=== PATIENT | female | born 1980 | race Caucasian/White ===

== ENCOUNTER 2020-10-20 21:02 | Emergency (ER) | payer MEDICAID ==
[2020-10-20] MEDS ORDERED: KEPPRA1000 MG PO (21:26)
[2020-10-20] MEDS ORDERED: NEURONTIN300 MG/CAP PO (21:27)
[2020-10-20] MEDS ORDERED: KAPSPARGO SPRIN25 MG PO (21:27)
[2020-10-20] MEDS ORDERED: METOPROLOL SUCC25 M1 PO (21:28)
[2020-10-20 22:04] LABS: HEMATOCRIT 40.6 % (37.0-47.0); HEMOGLOBIN 14.3 g/dL (12.5-16.0); MEAN CELL VOLUME 93 fl (78-100); MEAN CORPUSCULAR HEMOGLOBIN 33 pg (27-31); MEAN CORPUSCULAR HGB CONC 35 g/dL (33-37); MEAN PLATELET VOLUME 9.6 fl (7.4-10.4); PLATELET COUNT 69 K/mm3 (130-400); RED BLOOD COUNT 4.39 M/mm3 (4.10-5.30); RED CELL DISTRIBUTION WIDTH 15.1 % (11.5-14.5)
[2020-10-20 22:12] LABS: ALBUMIN 4.6 g/dL (3.5-5.0)
[2020-10-20 22:15] LABS: GLUCOSE 104 mg/dL (65-105); POTASSIUM 3.2 mmol/L (3.5-5.1); TOTAL PROTEIN 7.6 g/dL (6.4-8.3)
[2020-10-20 22:16] LABS: SODIUM 138 mmol/L (136-145)
[2020-10-20 22:17] LABS: CALCIUM 8.5 mg/dL (8.3-10.5); TOTAL BILIRUBIN 0.9 mg/dL (0.2-1.2)
[2020-10-20 22:21] LABS: ALCOHOL IN-HOUSE 123 mg/dL (<10); PARTIAL THROMBOPLASTIN TIME 20.6 SECONDS (21.0-32.0); PROTHROMBIN TIME 10.6 SECONDS (9.0-12.0)
[2020-10-20 22:23] LABS: AST-SGOT 419 U/L (5-34)
[2020-10-20 22:25] LABS: ALT/SGPT 108 U/L (0-55); MAGNESIUM 1.36 mg/dL (1.60-2.60)
[2020-10-20 22:28] LABS: ACETAMINOPHEN < 1 ug/mL; CARBON DIOXIDE 17 mmol/L (22-29)
[2020-10-20 23:02] LABS: PH-URINE 5.5 (5.0 - 8.0); URINE APPEARANCE CLOUDY; URINE BILIRUBIN NEGATIVE (NEGATIVE); URINE BLOOD 250 ery/uL (NEGATIVE); URINE COLOR YELLOW; URINE GLUCOSE NEGATIVE (NEGATIVE); URINE KETONE 2+ (NEGATIVE); URINE NITRATE NEGATIVE (NEGATIVE); URINE PROTEIN(semi-quant) 1+ mg/dL (NEGATIVE); URINE UROBILINOGEN NORMAL (NORMAL)
[2020-10-20 23:03] LABS: LYMPHOCYTE 16 % (20-51); MONOCYTE 5 % (3-10); NEUTROPHILS 79 % (42-75)
[2020-10-20 23:03] LABS: URINE LEUKOCYTE ESTERASE NEGATIVE (NEGATIVE); URINE MUCUS PRESENT (NOT PRESENT)
[2020-10-20 23:56] LABS: LIPASE 70 U/L (8-78)
[2020-10-21 01:10] VITALS: BP 138/84
== END 2020-10-21 01:10 | disposition home or self-care (01) ==
LOC: ED 21:02
PROVIDERS: Nurse Practitioner Family
DX: F10.239 Alcohol dependence with withdrawal, unspecified (principal); K70.10 Alcoholic hepatitis without ascites; E87.6 Hypokalemia; E83.42 Hypomagnesemia; E87.2 Acidosis; D69.6 Thrombocytopenia, unspecified; G89.29 Other chronic pain; M79.661 Pain in right lower leg; I10 Essential (primary) hypertension; G40.909 Epilepsy, unspecified, not intractable, without status epilepticus; Z79.899 Other long term (current) drug therapy; Z20.822 Contact with and (suspected) exposure to COVID-19
CPT/HCPCS: J2270; J2405; J3360; J3411; J3475; J3480; J3490; J7030

== ENCOUNTER 2021-01-11 15:04 | Emergency (ER) | payer MEDICAID ==
[~2021-01-11 15:04] MED LIST: KAPSPARGO SPRIN25 MG PO; KEPPRA1000 MG PO; METOPROLOL SUCC25 M1 PO; NEURONTIN300 MG/CAP PO
[2021-01-11] MEDS ORDERED: CIPROFLOX-DEXA7.5 ML OT (15:31)
[2021-01-11] MEDS ORDERED: AMOXICILLIN 50500 MG PO (15:31)
[2021-01-11] MEDS ORDERED: MUPIROCIN2% TP (16:49)
[2021-01-11] MEDS ORDERED: AUGMENTIN 875-1 EAC1 PO (16:49)
[2021-01-11 16:57] VITALS: BP 121/76
== END 2021-01-11 17:01 | disposition home or self-care (01) ==
LOC: ED 15:04
DX: H60.11 Cellulitis of right external ear (principal); H60.501 Unspecified acute noninfective otitis externa, right ear; H66.91 Otitis media, unspecified, right ear; Z87.891 Personal history of nicotine dependence
CPT/HCPCS: J0696; J1885

== ENCOUNTER 2021-02-27 13:06 | Emergency (ER) | payer MEDICAID ==
[~2021-02-27 13:06] MED LIST changes: +AMOXICILLIN 50500 MG PO; +AUGMENTIN 875-1 EAC1 PO; +CIPROFLOX-DEXA7.5 ML OT; +MUPIROCIN2% TP
[2021-02-27 13:48] LABS: BASO # 0.01 K/mm3 (0.02-0.10); HEMATOCRIT 40.2 % (37.0-47.0); HEMOGLOBIN 13.3 g/dL (12.5-16.0); MEAN CELL VOLUME 94 fl (78-100); MEAN CORPUSCULAR HEMOGLOBIN 31 pg (27-31); MEAN CORPUSCULAR HGB CONC 33 g/dL (33-37); MEAN PLATELET VOLUME 8.6 fl (7.4-10.4); MONO # 0.31 K/mm3 (0.20-0.80); NEU # 1.16 K/mm3 (1.40-6.50); PLATELET COUNT 111 K/mm3 (130-400); RED BLOOD COUNT 4.27 M/mm3 (4.10-5.30); RED CELL DISTRIBUTION WIDTH 16.3 % (11.5-14.5); WHITE BLOOD COUNT 2.2 K/mm3 (4.8-10.8)
[2021-02-27 14:03] LABS: ALBUMIN 3.9 g/dL (3.5-5.0); POTASSIUM 3.8 mmol/L (3.5-5.1)
[2021-02-27 14:07] LABS: TOTAL BILIRUBIN 1.1 mg/dL (0.2-1.2)
[2021-02-27 14:36] LABS: D-DIMER 0.87 mg/L FEU (0.15-0.50)
[2021-02-27] MEDS ORDERED: PREDNISONE20 M1 PO (15:43)
[2021-02-27 16:21] VITALS: BP 179/98
== END 2021-02-27 15:52 | disposition home or self-care (01) ==
LOC: ED 13:06
PROVIDERS: Nurse Practitioner
DX: U07.1 COVID-19 (principal); I10 Essential (primary) hypertension; Z79.899 Other long term (current) drug therapy
CPT/HCPCS: Q9967

== ENCOUNTER 2021-04-27 13:54 | Emergency (ER) | payer MEDICAID ==
[~2021-04-27] VITALS: Ht 162.6 cm; Wt 84.4 kg
[~2021-04-27 13:54] MED LIST changes: +PREDNISONE20 M1 PO
[2021-04-27 14:13] VITALS: BP 137/67
[2021-04-27 14:44] LABS: BASO # 0.06 K/mm3 (0.02-0.10); HEMATOCRIT 39.4 % (37.0-47.0); LYMPH# 1.36 K/mm3 (1.50-4.00); MEAN CELL VOLUME 102 fl (78-100); MEAN CORPUSCULAR HEMOGLOBIN 34 pg (27-31); MEAN CORPUSCULAR HGB CONC 33 g/dL (33-37); MEAN PLATELET VOLUME 9.7 fl (7.4-10.4); MONO # 0.22 K/mm3 (0.20-0.80); NEU # 4.92 K/mm3 (1.40-6.50); PLATELET COUNT 215 K/mm3 (130-400); RED BLOOD COUNT 3.86 M/mm3 (4.10-5.30); RED CELL DISTRIBUTION WIDTH 15.4 % (11.5-14.5); WHITE BLOOD COUNT 6.6 K/mm3 (4.8-10.8)
[2021-04-27 14:54] LABS: ALBUMIN 4.4 g/dL (3.5-5.0)
[2021-04-27 14:55] LABS: POTASSIUM 3.1 mmol/L (3.5-5.1); SODIUM 145 mmol/L (136-145)
[2021-04-27 14:56] LABS: CALCIUM 8.3 mg/dL (8.3-10.5)
[2021-04-27 14:57] LABS: GLUCOSE 79 mg/dL (65-105); TOTAL PROTEIN 7.3 g/dL (6.4-8.3)
[2021-04-27 14:59] LABS: TOTAL BILIRUBIN 0.6 mg/dL (0.2-1.2)
[2021-04-27 15:02] LABS: AST-SGOT 239 U/L (5-34)
[2021-04-27 15:04] LABS: ALT/SGPT 91 U/L (0-55)
[2021-04-27 15:09] LABS: ACETAMINOPHEN < 1 ug/mL; CARBON DIOXIDE 14 mmol/L (22-29)
[2021-04-27 15:11] LABS: ALCOHOL IN-HOUSE 438 mg/dL (<10)
[2021-04-28] MEDS ORDERED: TOPROL XL 25MG25 MG PO (04:59)
== END 2021-04-27 14:50 | disposition left against medical advice (07) ==
LOC: ED 13:54
PROVIDERS: Nurse Practitioner
DX: R45.83 Excessive crying of child, adolescent or adult (principal); Z20.822 Contact with and (suspected) exposure to COVID-19

== ENCOUNTER 2021-04-27 23:35 | Emergency (ER) | payer OTHER, MEDICAID ==
[~2021-04-27] VITALS: Ht 167.6 cm; Wt 84.4 kg
[2021-04-28 00:27] LABS: BASO # 0.04 K/mm3 (0.02-0.10); HEMATOCRIT 41.2 % (37.0-47.0); HEMOGLOBIN 13.6 g/dL (12.5-16.0); LYMPH# 1.89 K/mm3 (1.50-4.00); MEAN CELL VOLUME 102 fl (78-100); MEAN CORPUSCULAR HEMOGLOBIN 34 pg (27-31); MEAN CORPUSCULAR HGB CONC 33 g/dL (33-37); MEAN PLATELET VOLUME 8.8 fl (7.4-10.4); MONO # 0.22 K/mm3 (0.20-0.80); NEU # 2.85 K/mm3 (1.40-6.50); PLATELET COUNT 195 K/mm3 (130-400); RED BLOOD COUNT 4.03 M/mm3 (4.10-5.30); RED CELL DISTRIBUTION WIDTH 15.5 % (11.5-14.5)
[2021-04-28 00:36] LABS: URINE APPEARANCE HAZY; URINE COLOR YELLOW
[2021-04-28 00:36] LABS: ALBUMIN 4.9 g/dL (3.5-5.0); POTASSIUM 3.2 mmol/L (3.5-5.1); SODIUM 145 mmol/L (136-145)
[2021-04-28 00:37] LABS: PH-URINE 5.5 (5.0 - 8.0); URINE BILIRUBIN NEGATIVE (NEGATIVE); URINE BLOOD TRACE (NEGATIVE); URINE GLUCOSE NEGATIVE (NEGATIVE); URINE KETONE 2+ (NEGATIVE); URINE LEUKOCYTE ESTERASE NEGATIVE (NEGATIVE); URINE NITRATE NEGATIVE (NEGATIVE); URINE PROTEIN(semi-quant) 1+ (NEGATIVE); URINE UROBILINOGEN NORMAL (NORMAL); URINE WBC 0-1 /hpf (0-3)
[2021-04-28 00:37] LABS: CALCIUM 8.5 mg/dL (8.3-10.5)
[2021-04-28 00:39] LABS: GLUCOSE 88 mg/dL (65-105); TOTAL PROTEIN 8.3 g/dL (6.4-8.3)
[2021-04-28 00:40] LABS: TOTAL BILIRUBIN 0.6 mg/dL (0.2-1.2)
[2021-04-28 00:44] LABS: AST-SGOT 228 U/L (5-34)
[2021-04-28 00:45] LABS: ALT/SGPT 90 U/L (0-55)
[2021-04-28 00:47] LABS: ALCOHOL IN-HOUSE 428 mg/dL (<10)
[2021-04-28 00:48] LABS: ACETAMINOPHEN < 1 ug/mL; CARBON DIOXIDE 14 mmol/L (22-29)
[2021-04-28] MEDS ORDERED: TOPROL XL 25MG25 MG PO (04:59)
[2021-04-28 12:28] VITALS: BP 133/71
== END 2021-04-28 12:29 | disposition home or self-care (01) ==
LOC: ED 23:35
PROVIDERS: Nurse Practitioner
DX: F10.129 Alcohol abuse with intoxication, unspecified (principal); R45.851 Suicidal ideations; Y90.8 Blood alcohol level of 240 mg/100 ml or more; Z20.822 Contact with and (suspected) exposure to COVID-19
CPT/HCPCS: J2060; J2405; J3480; J7030

== ENCOUNTER 2021-07-15 16:46 | Emergency (ER) | payer MEDICAID ==
[~2021-07-15] VITALS: Ht 167.6 cm; Wt 84.4 kg
[~2021-07-15 16:46] MED LIST changes: +TOPROL XL 25MG25 MG PO
[2021-07-15] MEDS ORDERED: FOLIC ACID1 MG PO (17:29)
[2021-07-15] MEDS ORDERED: SERTRALINE HYDR25 MG PO (17:29)
[2021-07-15 17:55] LABS: BASO # 0.03 K/mm3 (0.02-0.10); EOS # 0.01 K/mm3 (0.04-0.40); EOS % 0.2 % (1.0-5.0); HEMATOCRIT 36.1 % (37.0-47.0); HEMOGLOBIN 12.2 g/dL (12.5-16.0); LYMPH# 0.85 K/mm3 (1.50-4.00); MEAN CELL VOLUME 93 fl (78-100); MEAN CORPUSCULAR HEMOGLOBIN 31 pg (27-31); MEAN CORPUSCULAR HGB CONC 34 g/dL (33-37); MEAN PLATELET VOLUME 10.9 fl (7.4-10.4); MONO # 0.37 K/mm3 (0.20-0.80); NEU # 4.17 K/mm3 (1.40-6.50); PLATELET COUNT 76 K/mm3 (130-400); RED BLOOD COUNT 3.89 M/mm3 (4.10-5.30); RED CELL DISTRIBUTION WIDTH 15.1 % (11.5-14.5); WHITE BLOOD COUNT 5.4 K/mm3 (4.8-10.8)
[2021-07-15 18:11] LABS: SODIUM 135 mmol/L (136-145)
[2021-07-15 18:12] LABS: CALCIUM 10.6 mg/dL (8.3-10.5)
[2021-07-15 18:14] LABS: GLUCOSE 115 mg/dL (65-105); TOTAL PROTEIN 7.7 g/dL (6.4-8.3)
[2021-07-15 18:15] LABS: TOTAL BILIRUBIN 1.7 mg/dL (0.2-1.2)
[2021-07-15 18:19] LABS: AST-SGOT 156 U/L (5-34)
[2021-07-15 18:20] LABS: ALT/SGPT 98 U/L (0-55)
[2021-07-15 18:31] LABS: ACETAMINOPHEN < 1 ug/mL; ALCOHOL IN-HOUSE < 10 mg/dL (<10); CARBON DIOXIDE 15 mmol/L (22-29); POTASSIUM 2.8 mmol/L (3.5-5.1)
[2021-07-15 18:42] LABS: URINE APPEARANCE CLOUDY; URINE BILIRUBIN NEGATIVE (NEGATIVE); URINE BLOOD 50 ery/uL (NEGATIVE); URINE COLOR YELLOW; URINE GLUCOSE NEGATIVE (NEGATIVE); URINE KETONE 2+ (NEGATIVE); URINE NITRATE NEGATIVE (NEGATIVE); URINE PROTEIN(semi-quant) 1+ (NEGATIVE); URINE UROBILINOGEN NORMAL (NORMAL)
[2021-07-15 18:52] LABS: URINE LEUKOCYTE ESTERASE TRACE (NEGATIVE)
[2021-07-16 11:58] LABS: POTASSIUM 3.2 mmol/L (3.5-5.1)
[2021-07-16 11:59] LABS: CALCIUM 9.8 mg/dL (8.3-10.5)
[2021-07-16] MEDS ORDERED: MAGOX 400241.3 MG PO (14:13)
[2021-07-16] MEDS ORDERED: POTASSIUM CHLO20 ME4 PO (14:13)
[2021-07-16 17:06] VITALS: BP 138/78
== END 2021-07-16 17:07 | disposition home or self-care (01) ==
LOC: ED 16:46
PROVIDERS: Family Medicine
DX: R05.9 Cough, unspecified (principal)
CPT/HCPCS: J1885; J2060; J3480